=== PATIENT | female | born 1955 | race Caucasian/White ===

== ENCOUNTER → 2016-07-21 | Outpatient (CLI) | payer OTHER | LOC: BMCIMAGING 10:02 | DX: Z12.31 Encounter for screening mammogram for malignant neoplasm of breast (principal) | CPT/HCPCS: G0202 ==

== ENCOUNTER → 2016-08-24 | Outpatient (CLI) | payer OTHER | LOC: BMCIMAGING 08:41 | PROVIDERS: ATTEND Family Medicine | DX: M25.78 Osteophyte, vertebrae (principal) ==

== ENCOUNTER → 2017-07-25 | Outpatient (CLI) | payer OTHER | LOC: BMCIMAGING 08:39 | PROVIDERS: ATTEND Family Medicine | DX: Z12.31 Encounter for screening mammogram for malignant neoplasm of breast (principal) ==

== ENCOUNTER → 2018-07-26 | Outpatient (CLI) | payer OTHER | LOC: BMCIMAGING 08:38 | PROVIDERS: ATTEND Family Medicine | DX: Z12.31 Encounter for screening mammogram for malignant neoplasm of breast (principal); Z80.3 Family history of malignant neoplasm of breast ==